=== PATIENT | male | born 1980 | race Caucasian/White ===

== ENCOUNTER 2020-03-14 09:15 | Day surgery (SDC) | payer MEDICAID, SELFPAY ==
[2020-03-14] MEDS: fentaNYL CITRATE/PF 100 MCG/2 ML AMP ONE ×3 (10:05→10:10)
[2020-03-14] MEDS: MIDAZOLAM HCL 5 MG/5 ML VIAL ONE ×3 (10:05→10:10)
[2020-03-14] MEDS ORDERED: SIMETHICONE 40 MG/0.6 ML ML ONE (10:21)
[2020-03-14] MEDS ORDERED: DIPHENHYDRAMINE INJ 50 MG/ML VIAL ONE (10:30)
[2020-03-14] MEDS ORDERED: fentaNYL CITRATE/PF 100 MCG/2 ML AMP ONE (10:31)
[2020-03-14 10:57] VITALS: BP_SYST 100
== END 2020-03-14 12:00 | disposition home or self-care (01) ==
LOC: SDS 09:15 → SMU 09:17 → SDS 12:00
PROVIDERS: ATTEND Internal Medicine
DX: R19.4 Change in bowel habit (principal); K52.9 Noninfective gastroenteritis and colitis, unspecified; Z20.828 Contact with and (suspected) exposure to other viral communicable diseases; K62.89 Other specified diseases of anus and rectum
CPT/HCPCS: 45380; 88305; 99152; G0378; J1200; J2250; J3010; U0003

== ENCOUNTER 2021-12-22 06:13 | Day surgery (SDC) | payer MEDICAID ==
[~2021-12-22] VITALS: Ht 177.8 cm; Wt 80.7 kg
[2021-12-22] MEDS ORDERED: SIMETHICONE 40 MG/0.6 ML ML ONE (07:14)
[2021-12-22] MEDS: MEPERIDINE 100 MG INJ. 100 MG/ML VIAL ONE ×3 (07:32→07:40)
[2021-12-22] MEDS: MIDAZOLAM HCL 5 MG/5 ML VIAL ONE ×3 (07:32→07:38)
[2021-12-22 10:13] VITALS: BP_SYST 105
== END 2021-12-22 09:00 | disposition home or self-care (01) ==
LOC: SDS 06:13 → SMU 06:15 → SDS 09:00
PROVIDERS: ATTEND Internal Medicine Gastroenterology
DX: K62.5 Hemorrhage of anus and rectum (principal); R19.4 Change in bowel habit; K64.9 Unspecified hemorrhoids; K52.9 Noninfective gastroenteritis and colitis, unspecified; F17.210 Nicotine dependence, cigarettes, uncomplicated; K50.119 Crohn's disease of large intestine with unspecified complications; Z79.899 Other long term (current) drug therapy; Z20.822 Contact with and (suspected) exposure to COVID-19
CPT/HCPCS: 36415; 45380; 87426; 88305; 99152; G0378; J2175; J2250; 45382